=== PATIENT | female | born 1965 | race Caucasian/White ===

== ENCOUNTER 2022-07-22 09:55 | Outpatient (CLI) | payer SELFPAY ==
--- NOTE | 2022-07-22 10:15 | CRLHL7_ITS ---
For Patients: As a result of the Century Cures Act, medical imaging exams and procedure reports are released immediately into your electronic medical record. You may view this report before your referring provider. If you have questions, please contact your health care provider. INDICATION: Dysphagia TECHNIQUE: Modified barium swallow. Fluoroscopic time 52 seconds. COMPARISON: None FINDINGS/IMPRESSION: Anatomical structures are normal. Swallowing mechanism appears within normal limits. No episodes of penetration or aspiration. No significant findings. Dictated by Phan Middleton MD @ 07/22/2022 10:41:35 AM (Electronically Signed)
--- NOTE | 2022-07-22 12:42 | SLP.EVAL ---
Dr. Eaton Please review, sign and return Thank you Bridgette Dowd WASTE WATER [employer] WATER PLANT OPERATOR WASTE W[employer] OR WATER PLANT OPERATOR Eval WASTE W[employer] OR WATER PLANT OPERATOR Eval Start: 07/22/22 11:10 Freq: Status: Active Protocol: Document 07/22/22 11:10 HJS (Rec: 07/22/22 11:17 S [id number]) E-signed By Bridgette Dowd CCC, W[employer]E W[employer] WATER [employer]ANT OPERATOR W[employer]E W[employer] WATER PLANT OPERATOR System Review History & Reason For Referral Type of Speech Evaluation Modified Barium Swallow Evaluation Rehabilitation Order Evaluation Date of Order 07/11/22 Reason for Referral difficulty swallowing Treatment Diagnosis dysphagia Hearing Information Hearing Status within normal Vision Information Vision Status within normal Patient Orientation Orientation & Mental Status Normal W[employer] OPERATOR Initial Assessment/POC Subjective Information Subjective/Pain Comment Patient independently ambulated to the xray suite. Assessment & Impression Assessment/Impression Patient is a 56 year old female referred for a modified barium swallow study due to the feeling of food sticking in the back of her throat and sometime feeling like the food is going up into her nasal passage. She had COVID in 2020 and had some acid reflux for several weeks after that. She reports she does not have reflux now. She reports neck tightness and the feeling of food sticking this past month. She denies feelings of aspiration. ORAL MOTOR FUNCTION AND DENTITION Patient able to move tongue and lips adequately and has adequate dentition. THIN LIQUID Patient took multiple sips of thin liquid by cup. She was able to initiate a swallow with a very slight delay. She swallowed without penetration or aspiration. PUREE Patient given a teaspoon of puree. She was able to manipulate and swallow without difficulty and there was no penetration, aspiration or pharyngeal residue. MUFFIN AND COOKIE WITH BARIUM PUREE Patient given separate trials of muffin and cookie each mixed with barium puree. She was able to swallow without penetration, aspiration or pharyngeal residue. IMPRESSIONS AND RECOMMENDATIONS Patient exhibits a safe, functional oral pharyngeal swallow with no penetration, aspiration or pharyngeal residue occurring on any trial . Patient has an ENT appointment soon. Recommend patient take small bites and chew well and take plenty of time to eat. No recommendations for diet change. Therapist Signature & License # I Certify That Therapy Services Provided Therapist Signature & License Number Bridgette Dowd CCC-WASTE WATER [employer] WATER PLANT OPERATOR, # [id number] Physician Signature Signature of Physician Indicates Medically Needed Services Physician Signature & Date Required Please Sign/Date Here Speech/Language Pathology Billing Units Billing Units Eval Swallow Motion Fluoro 1
== END 2022-07-22 09:56 | disposition home or self-care (01) ==
PROVIDERS: PCP Nurse Practitioner Family; Visit Provider Nurse Practitioner Family
DX: R13.10 Dysphagia, unspecified (principal)
CPT/HCPCS: 74230; 92611

== ENCOUNTER 2024-05-12 13:41 | Outpatient (CLI) | payer SELFPAY | END 2024-05-12 13:42 | disposition home or self-care (01) | LOC: KYNREF 13:41 | PROVIDERS: PCP Nurse Practitioner Family; Visit Provider Nurse Practitioner Family | DX: Z86.39 Personal history of other endocrine, nutritional and metabolic disease (principal) | CPT/HCPCS: 84439; 84443 ==